=== PATIENT | female | born 1985 | race Caucasian/White ===

== ENCOUNTER → 2021-03-10 | Outpatient (CLI) | payer OTHER ==
--- NOTE | 2021-03-10 16:29 | RAD ---
EXAM: OB ULTRASOUND, > 14 WEEKS HISTORY: anatomy survey. COMPARISON: None. TECHNIQUE: Multiple grayscale images, color Doppler, and M-mode images of the uterus are obtained. FINDINGS: There is a single intrauterine gestation in cephalic presentation. The placenta is posterior in locat ion. There is complete placenta previa. The amount of amniotic fluid appears appropriate. The cervica l length is 4.4 cm Biometrical data: BPD = 4.24 cm for 18 weeks 6 days. HC = 16.02 cm for 18 weeks 6 days. AC = 12.55 cm for 18 weeks 1 days. FL = 3.01 cm for 19 weeks 2 days. HC/AC ratio = 1.28. Overall, the estimated sonographic gestational age is 18 weeks and 6 days for an estimated date of de livery of 08/05/2021. The estimated date of delivery provided by the last menstrual period is . Estimated weight is 254 grams. A 4 chamber heart is identified with positive cardiac activity. The estimated heart rate is reuben ts per minute. Bilateral upper and lower extremities are identified. There is a three-vessel cord with cord insertion visualized. stomach and urinary bladder are identified. Both kidneys are seen. The spine and brain are unremarkable. No obvious anatomic abnormalities are identified. The maternal ovaries are not identified in the adnexa due to overlying bowel gas. IMPRESSION: 1. Single intrauterine fetus in cephalic presentation with normal heart rate and gestational age base d on ultrasound measurements of 18 weeks and 6 days. 2. Total placenta previa. Short-term sonographic follow-up can be performed to assess for possible re solution. 3. Unremarkable anatomy survey. Electronically signed by: Pearl Mcnamara MD (03/10/2021 4:27 PM) [id number]
== END ==
LOC: US 15:40
PROVIDERS: ATTEND Obstetrics & Gynecology
DX: O09.92 Supervision of high risk pregnancy, unspecified, second trimester (principal); O45.92 Premature separation of placenta, unspecified, second trimester
CPT/HCPCS: 76805

== ENCOUNTER → 2021-05-12 | Outpatient (CLI) | payer OTHER ==
[~2021-05-12] VITALS: Ht 165.1 cm; Wt 70.8 kg
[2021-05-12 10:21] LABS: BASO # 0.1 x10^3/uL (0.0-0.2); BASO % 1 % (0-3); EOS # 0.1 x10^3/uL (0.0-0.7); EOS % 1 % (0-3); HEMATOCRIT 34.4 % (36.0-47.0); HEMOGLOBIN 11.9 g/dL (12.0-15.5); LYMPH # 1.8 x10^3/uL (1.0-4.8); LYMPH % 23 % (24-48); MEAN CORPUSCULAR HEMOGLOBIN 32 pg (25-35); MEAN CORPUSCULAR HGB CONC 35 g/dL (31-37); MEAN CORPUSCULAR VOLUME 93 fL (79-100); MONO # 0.4 x10^3/uL (0.0-1.1); MONO % 6 % (0-9); NEUT # 5.7 x10^3/uL (1.8-7.7); NEUT % 70 % (31-73); PLATELET COUNT 234 x10^3/uL (140-400); RED BLOOD COUNT 3.72 x10^6/uL (3.50-5.40); RED CELL DISTRIBUTION WIDTH 13.1 % (11.5-14.5); WHITE BLOOD COUNT 8.1 x10^3/uL (4.0-11.0)
== END | disposition home or self-care (01) ==
LOC: LAB 09:06
PROVIDERS: ATTEND Obstetrics & Gynecology
DX: O26.892 Other specified pregnancy related conditions, second trimester (principal); O09.522 Supervision of elderly multigravida, second trimester; O09.92 Supervision of high risk pregnancy, unspecified, second trimester; Z67.21 Type B blood, Rh negative; Z3A.27 27 weeks gestation of pregnancy
CPT/HCPCS: 36415; 82950; 85025; 86850; 86900; 86901; 96372; J2790

== ENCOUNTER → 2021-05-16 | Outpatient (CLI) | payer OTHER ==
--- NOTE | 2021-05-16 14:59 | RAD ---
EXAM: OBSTETRIC ULTRASOUND. HISTORY: Placenta previa. COMPARISON: Or 2621. FINDINGS: Sonographic evaluation of the uterus, fetus and maternal pelvis was performed. There is a single fetus in vertex presentation. heart rate is 133 bpm. Estimated gestational ag e based on measurements is 28 weeks 3 days. Head circumference, biparietal diameter, abdominal circum ference and femur length are commensurate. Estimated weight is 1158 g. The placenta is posterior. Placenta previa has resolved. The margin of the placenta is now 5.3 cm fro m the internal os. Amniotic fluid volume appears normal with amniotic fluid index 10.3 cm. The cervix is closed and measures 4.0 cm. The profile appears normal. There is no hydrocephalus. No anomalies are identified on limited images. The maternal adnexa are obscured by positioning currently. IMPRESSION: 1. Resolution of placenta previa. 2. Single fetus in vertex presentation. heart rate 133 bpm. Estimated gestational age based on measurements 28 weeks 3 days. Electronically signed by: Deb Barnett MD (05/16/2021 2:56 PM) [facility]
== END ==
LOC: US 14:00
PROVIDERS: ATTEND Obstetrics & Gynecology
DX: O09.93 Supervision of high risk pregnancy, unspecified, third trimester (principal); O44.03 Complete placenta previa NOS or without hemorrhage, third trimester; Z3A.28 28 weeks gestation of pregnancy
CPT/HCPCS: 76815

== ENCOUNTER 2022-03-17 08:18 | Day surgery (SDC) | payer OTHER ==
[~2022-03-17] VITALS: Ht 154.9 cm; Wt 57.0 kg
[2022-03-17] MEDS ORDERED: CHOL5000 PO (08:35)
[2022-03-17 08:39] VITALS: BP 140/91
[2022-03-17] MEDS ORDERED: ceFAZolin SODIUM IV Push 1 GM VIAL. IVP PRN (09:00)
[2022-03-17] MEDS ORDERED: LIDOCAINE 1%/EPI 1:100,000 20 ML VIAL. INJ ONE (10:36)
[2022-03-17] MEDS ORDERED: FERRIC SUBSULFATE 8 ML SOL.W.APPL TP ONE (10:40)
--- NOTE | 2022-03-17 10:51 | PDOC4 ---
BRIEF OPERATIVE NOTE Date: March 17, 2022 Pre-Op Diagnosis Cervical Dysplasia Post-Op Diagnosis Same Procedure Performed Cold Knife Cone Cervical Biopsy Surgeon Dr. Gunn Anesthesia Type: General Blood Loss 5 ml Specimens Obtained anterior and posterior lip of cervix Findings cervical dysplasia Complications none Operative Note see dictation DIVYA GUNN Jr., MD March 17, 2022 10:51
[2022-03-17] MEDS ORDERED: OXYC1TAB15 PO (10:52)
--- NOTE | 2022-03-17 10:54 | DISCH ---
DISCHARGE INSTRUCTIONS Condition on Discharge Condition on Discharge: Stable Activity After Discharge Activity Instructions for Disc: Activity as tolerated Lifting Instructions after Dis: No heavy lifting Driving Instructions after Dis: Do not drive today Diet after Discharge Diet after Discharge: Regular Contacting the DRTish after DC Call your doctor for: If your condition worsens Follow-Up Follow up with: Dr. Gunn in 1 week. DIVAY GUNN Jr., MD March 17, 2022 10:54
[2022-03-17] MEDS ORDERED: oxyCODONE/APAP 5/325 1 TAB TABLET PO ONE (11:15)
[2022-03-17] MEDS ORDERED: IV RINGERS,LACTATED 1000ML 1,000 ML IV SCH (11:15)
[2022-03-17 11:35] VITALS: BP 132/84
--- NOTE | 2022-03-17 15:41 | OP ---
DATE OF SURGERY: 03/17/2022 PREOPERATIVE DIAGNOSIS: Cervical dysplasia. POSTOPERATIVE DIAGNOSIS: Cervical dysplasia. PROCEDURE: Cold knife cone cervical biopsy. SURGEON: Ghassan Gunn M.D. ANESTHESIA: GETA. ESTIMATED BLOOD LOSS: 5 mL COMPLICATIONS: None. FINDINGS: Cervical dysplasia. SUMMARY: A 36-year-old female with REAGAN 1 on colposcopic biopsy, requiring cervical cone biopsy. She was counseled on the risks, benefits and expectations and voiced clear understanding to proceed. DESCRIPTION OF PROCEDURE: The patient was taken to surgery suite and placed in dorsal lithotomy position, was prepped with Betadine solution and draped in a sterile fashion. After adequate anesthesia, weighted speculum and right angle were placed vaginally. Anterior lip of the cervix grasped with a single tooth tenaculum. Cervix was injected with 1% lidocaine with epinephrine in a circumferential manner. Suture of 2-0 Vicryl suture was placed at 3 o'clock and 9 o'clock position to help stabilize the cervix. Cone biopsy was performed using 45-degree angle scapula removing portion of the anterior and posterior lip of the cervix. The cervix was then cautery above with Bovie cautery. Monsel solution was also placed for better hemostasis. The single-tooth tenaculum and weighted speculum were then removed. The patient was taken to recovery room in stable condition. Sponge and needle count correct x 3. JACKIE/YUMI/LEONIDAS DR: JACKIE/abbi TID: [id number]
== END 2022-03-17 11:42 | disposition home or self-care (01) ==
LOC: SURG 08:18
PROVIDERS: ATTEND Obstetrics & Gynecology
DX: N87.9 Dysplasia of cervix uteri, unspecified (principal); Z79.899 Other long term (current) drug therapy; Z98.890 Other specified postprocedural states; Z72.89 Other problems related to lifestyle; Z88.1 Allergy status to other antibiotic agents; N87.0 Mild cervical dysplasia
CPT/HCPCS: 57520; 81025; J3490; A4351; A4930